=== PATIENT | female | born 1970 | race Caucasian/White ===

== ENCOUNTER 2024-04-11 15:03 | Emergency (ER) | payer OTHER ==
[~2024-04-11] VITALS: Ht 157.5 cm; Wt 54.4 kg
[2024-04-11 15:34] VITALS: BP 129/80; TEMP 98.4
[2024-04-11 16:20] VITALS: O2SAT 100
== END 2024-04-11 16:21 | disposition home or self-care (01) ==
LOC: ER 15:03
DX: S61.213D Laceration without foreign body of left middle finger without damage to nail, subsequent encounter (principal); E78.00 Pure hypercholesterolemia, unspecified; Z48.02 Encounter for removal of sutures; X58.XXXD Exposure to other specified factors, subsequent encounter